=== PATIENT | female | born 1990 | race Caucasian/White ===

== ENCOUNTER 2022-08-07 04:55 | Inpatient (IN) | payer MEDICAID, SELFPAY ==
[2022-08-06 22:43] VITALS: BP 137/94; PULSE 92
[2022-08-06 22:44] VITALS: TEMP 36.2
[2022-08-06 23:14] VITALS: RESP 15
[2022-08-06 23:16] VITALS: BMI 30.1
[2022-08-06 23:28] VITALS: BP 149/90; PULSE 74
[2022-08-07] VITALS (198 sets, daily range): BP systolic 118–181; BP diastolic 68–110; PULSE 61–112; RESP 14–16; TEMP 36.1–36.4; O2SAT 83–100
[2022-08-07] MEDS: lactated ringers 1,000 ML 999 ML IV (00:57)
[2022-08-07 01:29] LABS: Basophils % 0.5 %; Eosinophils % 0.3 %; Hematocrit 37.8 % (37.0-47.0); Hemoglobin 11.9 g/dL (11.5-15.3); Lymphocytes # 1.9 10^3/uL (0.8-4.8); Lymphocytes % 30.6 %; Mean Corpuscular HGB Conc 31.5 g/dL (30.0-36.0); Mean Corpuscular Hemoglobin 28.7 pg (28.0-34.0); Mean Corpuscular Volume 91.1 fl (81-99); Mean Platelet Volume 12.5 fL (7.4-10.4); Monocytes # 0.4 10^3/uL (0.2-0.9); Monocytes % 6.5 %; Neutrophils # 3.81 10^3/uL (1.8-7.7); Neutrophils % 61.6 %; Nucleated Red Blood Cells % 0 %; Platelet Count 164 10^3/cmm (130-400); Red Blood Count 4.15 10^6/uL (4.1-5.3); Red Cell Distribution Width 15.7 % (12.1-15.1); White Blood Count 6.2 10^3/uL (4.0-10.0)
[2022-08-07 01:37] LABS: Urine Appearance Clear (CLEAR); Urine Color Yellow (Yellow)
[2022-08-07 01:38] LABS: Bilirubin Urine Neg (Negative); Blood Urine 2+ (Negative); Glucose Urine UA Norm (Normal); Ketones Urine Negative (Negative); Leukocyte Esterase Urine Negative (Negative); Nitrate Urine Negative (Negative); Protein Urine 3+ (Negative); Urobilinogen Urine Neg (Negative); pH Urine 5 (5-7)
[2022-08-07 01:39] LABS: Amphetamines Screen Urine Positive (Negative); Barbiturates Screen Urine Negative (Negative); Benzodiazepines Screen Urine Negative (Negative); Cocaine Screen Urine Negative (Negative); Opiate Screen Urine Negative (Negative); PCP Screen Urine Negative (Negative); THC Screen Urine Positive (Negative)
[2022-08-07 01:41] LABS: Add Urine Culture? No; RBC Urine 0-4 /hpf (0-2)
--- NOTE | 2022-08-07 01:44 | USR_ITS ---
PROCEDURE INFORMATION: Exam: US Plus Detailed Evaluation, First Gestation, Transabdominal Exam date and time: 08/07/2022 1:53 AM Age: 32 years old Clinical indication: Lmp or gestational age (in weeks): 38 weeks; Labor and delivery abnormalities; Other: Contactions; ; Prior surgery; Surgery date: 6+ months; Surgery type: HX of ; Additional info: No care LABS AND CLINICAL REPORTS: Last menstrual period start date: 11/13/2021 Gestational age (Established): 38 w 1 d Estimated due date (Established): 08/20/2022 TECHNIQUE: Imaging protocol: Real time transabdominal uterus, including and maternal evaluation plus detailed anatomic examination with image documentation. First gestation. COMPARISON: No relevant prior studies available. FINDINGS: Gestation: Single live intrauterine gestation heart rate: 136 bpm presentation: Cephalic Placenta: Posterior placenta without previa. Amniotic fluid: Amniotic fluid is normal for gestational age. Amniotic fluid index: ROBBIE is 14.6 cm. ANATOMY: brain parenchyma: Grossly unremarkable. corpus callosum: N/A midline falx: midline falx is normal. septum pellucidum: N/A cerebellum: cerebellum is normal. lateral ventricles: lateral ventricles are normal. choroid plexus: Obscured by position cisterna magna: Obscured by position orbits: N/A upper lip and nose: upper lip and nose are normal. palate, maxilla, mandible, and tongue: facial profile: facial profile is normal. coronal face including nose, lips and lens: N/A ear position and size: N/A Neck: N/A lungs: N/A situs: situs is normal. heart four-chamber view, heart size and position: heart four-chamber view, size, and position are normal. three-vessel and trachea view: N/A three-vessel view: N/A right ventricular outflow tract: right ventricular outflow tract is normal. left ventricular outflow tract: left ventricular outflow tract is normal. aortic arch: N/A superior and inferior vena cava: N/A ribs: N/A diaphragm: N/A liver: N/A gallbladder: N/A spleen: N/A adrenal glands: N/A kidneys: kidneys are normal. renal arteries: N/A stomach: stomach is normal. urinary bladder: bladder is normal. spine: No visualized abnormalities of spine. Spine shape and curvature: Grossly unremarkable. integrity soft tissue overlying spine: N/A Umbilical cord insertion site into the abdomen: umbilical cord insertion site into the abdomen is normal. Umbilical cord vessel number: 3-vessel umbilical cord arms and hands: No visualized abnormalities of arms/hands. legs and feet: No visualized abnormalities of legs/feet. abdominal wall: N/A external genitalia: No visualized abnormalities. BIOMETRY: Gestational age (AUA): 37 w 0 d Estimated due date (AUA): 08/28/2022 Estimated weight: 3155 g. [place] ([id number]) Biparietal diameter (BPD): 9 cm. EGA (BPD) is 36 w 3 d Head circumference (HC): 33.3 cm. EGA (HC) is 38 w 0 d Abdominal circumference (AC): 33.6 cm. EGA (AC) is 37 w 4 d Femur length (FL): 7.2 cm. EGA (FL) is 36 w 5 d Cephalic Index (CI): 73.3 % FL/HC: 21.5 % FL/BPD: 79.6 % MATERNAL ANATOMY: Uterus: Grossly unremarkable. Cervix: Grossly unremarkable. Right ovary/adnexa: N/A. Left ovary/adnexa: N/A. Intraperitoneal space: N/A. Notes: This detailed survey study is focused on known or suspected anomalies. US/US OB >= 14 weeks fetus [id number] IMPRESSION: Single live intrauterine gestation as described above within AUA of approximately 37 weeks 0 days.
[2022-08-07 01:46] LABS: Alanine Aminotransferase 117 U/L (0-33); Albumin Level 2.8 g/dL (3.5-5.2); Alkaline Phosphatase 414 U/L (35-105); Anion Gap 12.9 (5-19); Aspartate Amino Transferase 80 U/L (0-32); Blood Urea Nitrogen 18 mg/dL (6-20); Calcium 8.4 mg/dL (8.5-10.5); Carbon Dioxide 21 mmol/L (22-29); Chloride 104 mmol/L (98-107); Globulin 3.5 g/dL (1.3-4.6); Glomerular Filtration Rate 83.1 mL/min (90-130); Glucose 80 mg/dL (65-115); Osmolality Calculated 279 mOsm/kg (285-295); Potassium 3.9 mmol/L (3.5-5.1); Sodium 134 mmol/L (136-145); Total Bilirubin 0.2 mg/dL (0.15-1.2); Total Protein 6.3 g/dL (6.6-8.7)
[2022-08-07 03:24] LABS: Rapid Plasma Reagin Syphilis Nonreactive (Nonreactive)
[2022-08-07 03:31] LABS: HIV 1 & 2 Antibody Non-Reactive (Non-Reactiv); HIV 1 & 2 Antigen Non-Reactive (Non-Reactiv)
[2022-08-07 03:44] LABS: Hepatitis B Surface Antigen Non-Reactive (Nonreactive)
[2022-08-07] MEDS: cefTRIAXone 1,000 MG in sodium chloride 0.9% (plus) 50 ML 100 MG IV (03:55)
[2022-08-07] MEDS: magnesium sulfate premix 4 GM/100 ML PREMIX IV (03:57)
[2022-08-07] MEDS: magnesium sulfate premix 20 GM/500 ML BAG IV ×2 (04:19→14:40)
--- NOTE | 2022-08-07 04:20 | PM.OBGYHP ---
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 Pt c/o contractions onset 12/15 early am. She denies SROM or vaginal bleeding. States she has been receiving PNC in [place] but doesn't know Physicians name, states she is scheduled for repeat section 08/23/2022 at [facility], but LD states she has no records there and is not on their schedule. Pt gives extensive hx of Drug Abuse and has been on Subutex 4mg TID this , last dose taken noon on 08/06/2022 as well as the last 2 pregnancies and Methadone her 1st . She admits to using Methamphetamines recently, and denies using other drugs or alcohol. I have discussed her elevated BP and treatment with MgSO4 to prevent seizures(PIH), for she denies hx of elevated BP, but does state that it has been elevated about the last 5 wks or so in the clinic, but they hadn't started any Meds. She states she has had HAs about 2 wks, but no visual changes, chest pain or shortness of breath and the Baby has been moving good. Present Details : 6 Para: 3 Other Details: - [facility] 03/29 Vtx presentation EFW- pending ROBBIE-pending Gender- male FL- 36.5 wk, AC 37.4wk, BPD 36.1wk and HC 38.0 wk... Cx 4.71cm Specific History Indications for Section: Repeat Other information: Early labor, contractions q 6-7 . Cx 1cm/40/-3. Review of Systems Narrative: 32yoC. female A/O x3 NAD ENMT: Reports: other (poor dentitia) Skin/Breast: Reports: rash, pruritus and sores Neuro: Reports: headache(s) Medications/Allergies Home Medications Medication Instructions Recorded Confirmed Last Taken Type 1 tab PO DAILY 08/06/22 08/06/22 08/06/22 08:00 History Subutex 4 mg PO TID 08/06/22 08/06/22 08/06/22 12:00 History Allergies Allergy/AdvReac Type Severity Reaction Status Date / Time aspirin Allergy ADR-Nausea Verified 08/06/22 23:22 PFSH AIRCRAFT MOTOR MECHANIC PFSH: Surgical History (Updated 08/07/22 @ 05:09 by Destiny Jimenez DO) Previous section Family History (Updated 08/07/22 @ 04:47 by Destiny Jimenez DO) Other Family history of systemic lupus erythematosus (SLE) in mother Social History (Updated 08/07/22 @ 04:50 by Destiny Jimenez DO) Smoking and tobacco status: former smoker Quit status (tobacco): has quit using tobacco Alcohol intake: never Substance/Drug Use: current Other details last substance use: within the last 2 wk Methamphetamines Household members: family Housing: House Number of children: 3 Current occupational status: unemployed Sexually active: Yes Current gender identity: Female Financial difficulty paying for basics: Somewhat Hard Other Female Reproductive History: Menstrual History Comment: Don't remember LMP History History History 6 Term 3 Miscarriages/Ectopic 2 Living Children 3 Vitals/I&O/Wt Last Vital Signs Temp 97.2 F L 08/06/22 22:44 Pulse 73 08/07/22 04:03 Resp 15 08/06/22 23:14 BP 145/100 08/07/22 04:03 Weight last 48 hrs Weight 82.1 kg Physical Exam Narrative: 32yo C. female Alert and Oriented, answers questions appropriately. But doesn't remember some of her history, she says because of past drug use. Const: COMMON NORMALS: no acute distress and patient oriented x3 HENMT: COMMON NORMALS: normocephalic, Normal external nose present, Normal nasal mucous membranes and turbinates present, moist oral mucous membranes and dentition normal (poor dentitia) TEETH & GINGIVA: Yes poor dentition Neck/C-Spine: COMMON NORMALS: full ROM, no lymphadenopathy and Thyroid normal Chest: COMMONS NORMALS: normal palpation of entire chest wall Resp: COMMON NORMALS: normal respiratory effort and clear to auscultation bilaterally Cardio: COMMON NORMALS: no JVD, regular rate and regular rhythm : COMMON NORMALS: Yes no CVA tenderness, Yes normal external appearance and Yes normal appearance of the vagina OTHER: nontender Extremity: OTHER: +2 lower ext edema, DTR +2 bilat. Neuro: COMMON NORMALS: patient oriented x3, CN's II-XII intact bilaterally, moves all extremities, no sensory deficits noted and deep tendon reflexes 2+ bilaterally Skin: NARRATIVE SKIN EXAM: skin color mottled, with many new and old lesions Data 08/07/22 00:52 08/07/22 00:52 A&P Assessment and plan (1) 38 weeks gestation of : P. 1. Admit to LD for EFM and Lab 2. Evaluate for Labor 3. Magnesium sulfate 4gm bolus, 2gm Maintenance for PIH 4. Celestone 12mg IM 5.Rocephin 1 gm IVPB 6. Ampicillin 1gm IVPB q 4hr 7. OB US for ANTWAN and BPP 8. Fentyl 25mcg for pain q 2 hrs 9. Schedule for Repeat C/S 30 08/07/22. Have Detective Captain present.... (2) Drug abuse, amphetamine type: P. Continue Subtex 4mg TID (3) Previous section: (4) Hypertension affecting in third trimester: P. MGSO4 Schedule Repeat C/S. Attestations Medical Necessity Statement*: Pt admitted after signs of early labor and pain with elevated BP, (Chronic HTN vs PIH vs drug induced) Will schedule Repeat C/S delivery. Coding Level of Care Code Acute Work From Home for [employer] Diagnoses 38 weeks gestation of Z3A.38 Drug abuse, amphetamine type F15.10 Previous section Z98.891 Hypertension affecting in third trimester O16.3
[2022-08-07] MEDS: fentaNYL 50 mcg/mL INJ 2mL 25 MCG IVP (04:24)
[2022-08-07] MEDS: benzocaine-menthol 78 gm Canister 1 SPRAY TOPICAL (04:26)
[2022-08-07] MEDS: ampicillin 1,000 MG in sodium chloride 0.9% (plus) 50 ML 75 MG IV (05:22)
[2022-08-07] MEDS: dexamethasone 10 mg/mL INJ IM (05:25)
[2022-08-07] MEDS: metoclopramide 5 mg/mL SDV 2 mL 10 MG IVP (07:20)
--- NOTE | 2022-08-07 07:20 | P.ANESASSM_ITS ---
Pre-Anesthetic Assessment Height/Weight: Height 1.65 m Weight 82.1 kg Temp Pulse Resp BP O2 Del Method 97.2 F L 86 15 154/103 08/06/22 22:44 08/07/22 07:21 08/06/22 23:14 08/07/22 07:21 08/07/22 04:45 Preop Diagnosis: IUP Operation Date: 08/07/22 07:50 Proposed Procedures p Section Repeat(Not Applicable) - Destiny Jimenez, Familial anesthetic complications: none Was Beta Nereida taken within 24 hours: N/A Was Clonidine taken within 24 hours: N/A Last intake: yesterday morning Social Tobacco and No alcohol pos. for meth and THC Exam alert and oriented x 3 Airway Submandibular: within normal limits Cervical ROM: within normal limits Mallampati: Class IV Dentition: chipped and other (multiple missing, very poor dentition) Pulmonary None reported CV/HEM Hypertension None reported Hepatic None reported GI Gastroesophageal Reflux Disease Metabolic None reported Musc/skel None reported Neuropsych None reported Anesthetic Plan ASA status: 3 Anesthesia: Anesthesia Evaluation and Regional (specify below) (SAB) Risk of > 500 ml blood loss (7ml/kg in children): No Medications/Allergies Home Medications Medication Instructions Recorded Confirmed Last Taken Type 1 tab PO DAILY 08/06/22 08/06/22 08/06/22 08:00 History Subutex 4 mg PO TID 08/06/22 08/06/22 08/06/22 12:00 History Allergies Allergy/AdvReac Type Severity Reaction Status Date / Time aspirin Allergy ADR-Nausea Verified 08/06/22 23:22 Current Medications Generic Name Dose Route Start Last Admin Trade Name Maycoq PRN Reason Stop Dose Admin Benzocaine 1 spray 08/07/22 03:43 08/07/22 04:26 Benzocaine-Menthol 78 Gm Canister TOPICAL 1 spray PRN PRN Administration PAIN Fentanyl 25 mcg 08/07/22 04:13 08/07/22 04:24 Fentanyl 50 Mcg/Ml Inj 2ml IVP 25 mcg Q2H PRN Administration SEVERE PAIN Magnesium Sulfate 20 gm in 500 mls @ 50 mls/hr 08/07/22 03:30 08/07/22 04:19 Magnesium Sulfate Premix IV 50 mls/hr .Q10H BRAD Administration Ampicillin Sodium 1,000 mg/ 50 mls @ 100 mls/hr 08/07/22 03:30 08/07/22 05:22 Sodium Chloride IV 75 mls/hr Q6H BRAD Administration Protocol [facility] Anesthesia Surgical History (Updated 08/07/22 @ 05:09 by Destiny Jimenez DO) Previous section Family History (Updated 08/07/22 @ 04:47 by Destiny Jimenez DO) Other Family history of systemic lupus erythematosus (SLE) in mother Social History (Updated 08/07/22 @ 04:50 by Destiny Jimenez DO) Smoking and tobacco status: former smoker Quit status (tobacco): has quit using tobacco Alcohol intake: never Substance/Drug Use: current Other details last substance use: within the last 2 wk Methamphetamines Household members: family Housing: House Number of children: 3 Current occupational status: unemployed Sexually active: Yes Current gender identity: Female Financial difficulty paying for basics: Somewhat Hard Female Reproductive History : 6 Data Anesthesia 08/07/22 00:52 08/07/22 00:52 Short CBC 08/07/22 Range/Units 00:52 WBC 6.2 (4.0-10.0) 10^3/uL Hgb 11.9 (11.5-15.3) g/dL Hct 37.8 (37.0-47.0) % MCV 91.1 (81-99) fl Plt Count 164 (130-400) 10^3/cmm Neut % (Auto) 61.6 % Neut # (Auto) 3.81 (1.8-7.7) 10^3/uL BMP 08/07/22 00:52 Sodium 134 L Potassium 3.9 Chloride 104 Carbon Dioxide 21 L BUN 18 Creatinine 0.8 Glucose 80 Calcium 8.4 L Liver Function 08/07/22 Range/Units 00:52 Total Bilirubin 0.2 (0.15-1.2) mg/dL AST 80 H (0-32) U/L ALT 117 H (0-33) U/L Alkaline Phosphatase 414 H (35-105) U/L Albumin 2.8 L (3.5-5.2) g/dL Urine 08/07/22 Range/Units 01:13 Urine Color Yellow (Yellow) Urine Appearance Clear (CLEAR) Urine pH 5 (5-7) Ur Specific [place] 1.020 (1.005-1.030) Urine Protein 3+ H (Negative) Urine Glucose (UA) Norm (Normal) Urine Ketones Negative (Negative) Urine Nitrate Negative (Negative) Urine Bilirubin Neg (Negative) Ur Leukocyte Esterase Negative (Negative) Urine RBC 0-4 H (0-2) /hpf Urine WBC None (0-5) /hpf Blood Bank 08/07/22 00:52 Blood Type A Positive Rho(D) Type Positive Antibody Screen Negative Cardiac Studies: No Data to Display
[2022-08-07] MEDS: famotidine 20 mg/2 mL INJ IVP (07:21)
[2022-08-07] MEDS: citric acid-sodium citrate 30 mL UDC PO (07:22)
--- NOTE | 2022-08-07 08:49 | P.OP_ITS ---
Operative Report Date of procedure: August 07, 2022 Pre-op diagnosis: Preop Diagnosis 38wk IUP No PNC Previous C/S x 3 Gestational Hypertension Chronic Drug Abuse Positive Urine Drug Screen (Methamphetamines and THC) Early labor Hx of Hep C Post-op diagnosis: same + Meconium stained fluid Right Ovarian Cyst 5cm Procedure done: Repeat LTCS Aspiration of 5cm Right Ovarian Cyst (30cc clear fluid) Specimens removed/disposition: Placenta 30cc fluid from Right Ovarian Cyst Pathology: both specimens Surgeon: Carlos Jimenez DO Anesthesia: Other (spinal) Estimated blood loss: 1000ml IV fluids: see Anesthesia records Urine output: 200cc Complications: none Condition: stable Disposition: floor Brief History: 32yo C. female delivered by Repeat LTCS a viable male 7#11 with 9/9. Vertex presentation delivered with Robust cry, bulb suctioned. Anterior followed by posterior shoulder delivered followed by remainder of body. Delayed cord clamping, then cut. 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 pH and cord blood drawn and handed off. 3v cord noted, placenta spontaneously expelled and removed, uterus exteriorized and wiped clean. Pitocin IV solution given via bolus and uterus messaged and firmed well. Uterine incision closed with running stitch of 0 vicryl. A 5cm Right Ovarian cyst noted, using 18 gauge needle and 6cc syringe aspiration of 30cc clear fluid. Good Hemostasis noted. Posterior culdesac and side paez wiped clean with moist Laps, uterus replaced in abdomen. Rectus muscle and peritoneum approximated with 2 vicryl. Fascia closed with 0 vicryl, SQ fat approximated with 2 vicryl, and skin approximated with subcuticular running stitch. Good hemostasis. Uterus messaged and noted to be firm, Uterus and vaginal vault evacuated. Needle, instrument and sponge count correct. Pt and Baby Boy both stable. Procedure: Repeat LTCS with Aspiration of Right Ovarian Cyst
[2022-08-07 11:55] LABS: Magnesium Level (OB Only) 5.3 mg/dL (5.0-7.5)
[2022-08-07 12:05] LABS: Cyto Order Verification Order Verified
[2022-08-07] MEDS: buprenorphine-naloxone 4-1 mg Film 1 EACH SUBLINGUAL ×3 (12:16→20:58)
[2022-08-07] MEDS: ketorolac 30 mg/mL INJ IVP ×2 (14:39→20:58)
[2022-08-07] MEDS: acetaminophen 325 mg Tablet 650 MG PO (16:36)
[2022-08-07] MEDS: docusate sodium 100 mg Capsule PO (18:42)
[2022-08-07] MEDS: dextrose 5%-lactated ringers 1,000 ML 125 ML IV (21:15)
[2022-08-07 23:07] LABS: Hematocrit 33.8 % (37.0-47.0); Mean Corpuscular HGB Conc 32.5 g/dL (30.0-36.0); Mean Corpuscular Volume 89.2 fl (81-99); Mean Platelet Volume 12.9 fL (7.4-10.4); Platelet Count 197 10^3/cmm (130-400); Red Blood Count 3.79 10^6/uL (4.1-5.3); Red Cell Distribution Width 15.8 % (12.1-15.1); White Blood Count 11.6 10^3/uL (4.0-10.0)
[2022-08-08] VITALS (7 sets, daily range): BP systolic 128–174; BP diastolic 92–101; PULSE 75–89; RESP 16; TEMP 36.4; O2SAT 88
[2022-08-08] MEDS: ketorolac 30 mg/mL INJ IVP (03:18)
[2022-08-08] MEDS: docusate sodium 100 mg Capsule PO (08:41)
[2022-08-08] MEDS: buprenorphine-naloxone 4-1 mg Film 1 EACH SUBLINGUAL ×3 (08:41→21:08)
[2022-08-08] MEDS: prenatal vitamin Capsule 1 CAP PO (08:41)
[2022-08-08] MEDS: ibuprofen 800 mg tablet PO ×3 (09:00→21:08)
--- NOTE | 2022-08-08 10:14 | PM.OBGYPN ---
CUSTOMER SERVICE CORRESPONDENCE CLERK Subjective Subjective: Interval history: Pt doing well, denies problems of nervous shakes, HAs, nausea or vomiting. Ambulating without assistance, had shower this am. Voiding and passing flatus. Pain managed with Tylenol and Ibuprofen, no narcotics. Discussed importance of remaining off street drugs and continuing her Subutex. Labor: Station: -4 Amniotic Membrane Status: Intact Monitor Mode: External Contraction Pattern: Irregular Vitals/I&O/Wt Last Vital Signs Temp 97.5 F L 08/07/22 16:41 Pulse 75 08/08/22 05:10 Resp 16 08/07/22 22:45 BP 157/95 08/08/22 05:10 Pulse Ox 88 L 08/07/22 21:12 O2 Del Method 08/07/22 09:15 08/07/22 08/08/22 08/08/22 22:59 06:59 14:59 Intake Total 2775 / 5075 Output Total 1320 / 4420 1800 / 6220 Balance 1455 / 655 -1800 / -1145 Weight last 48 hrs Weight 82.1 kg Physical Exam Narrative: Pt ambulating in room, A/O x 3 NAD. Const: COMMON NORMALS: patient oriented x3 Cardio: COMMON NORMALS: regular rate, regular rhythm and No murmurs present (Cardio) RATE: regular rate RHYTHM: regular rhythm : COMMON NORMALS: Yes no CVA tenderness BLADDER/KIDNEY EXAM: Yes no CVA tenderness Back/Pelvis: COMMON NORMALS: no CVA tenderness OTHER: Abd- soft, fundus firm, Incision Clean, Dry and Intact. Lochia light. Extremity: NARRATIVE EXTREMITY EXAM: Pedal and lower ext- edema has resolved. Neg Homans sign. Neuro: COMMON NORMALS: patient oriented x3, CN's II-XII intact bilaterally, moves all extremities, no focal motor deficits, deep tendon reflexes 2+ bilaterally and gait normal Urinary Catheter Management: Merino: Cath Placed During This Visit: yes, but has since been removed by the nurse Reason for Continuing Indwelling Catheter: Decision to DC Catheter Urinary Catheter Date of Insertion: 08/07/22 Urinary Catheter Time of Insertion: 05:05 Date Urinary Catheter Removed: 08/08/22 Time Urinary Catheter Discontinued: 03:43 Data 08/07/22 22:00 08/07/22 00:52 Micro: Microbiology 08/07/22 05:15 Chlamydia trachomatis (ASHLEY) - Final Urine Random Neisseria gonorrhoeae (ASHLEY) - Final A&P Assessment and plan (1) S/P repeat low transverse : 1. Continue postop orders 2. Watch BP Plan Continue care. Attestations Medical Necessity Statement*: POstop care. Coding Level of Care Code Acute Vice President Quality Assurance for [facility] Fwd Diagnoses S/P repeat low transverse Z98.891
[2022-08-08] MEDS: labetalol 200 mg Tablet 100 MG PO (22:59)
[2022-08-09] VITALS (7 sets, daily range): BP systolic 126–142; BP diastolic 65–82; PULSE 70–86; RESP 15; TEMP 36.7–37.1
[2022-08-09] MEDS: alum-mag-hydroxide-sime 30 mL UDC PO (04:05)
[2022-08-09] MEDS: ibuprofen 800 mg tablet PO (08:07)
[2022-08-09] MEDS: labetalol 200 mg Tablet 100 MG PO (08:07)
[2022-08-09] MEDS: prenatal vitamin Capsule 1 CAP PO (08:07)
[2022-08-09] MEDS: ferrous sulfate EC 325 mg Tablet PO (08:07)
[2022-08-09] MEDS: buprenorphine-naloxone 4-1 mg Film 1 EACH SUBLINGUAL (08:08)
--- NOTE | 2022-08-09 10:27 | PM.OBGYDC ---
Discharge Providers SERVICES ENGINEER Date of Admission: 08/07/22 04:55 Date of Discharge: 08/09/22 Attending Provider at Admission: Destiny Jimenez DO Attending Provider at Discharge: Destiny Jimenez DO Primary Care Provider: Hakeem Vuong MD Diagnoses at Discharge Discharge Diagnosis (1) S/P repeat low transverse : Status: Acute (2) Hypertension affecting in third trimester: Status: Acute (3) Previous section: Status: Acute (4) Drug abuse, amphetamine type: Status: Acute (5) 38 weeks gestation of : Status: Acute (6) Hep C w/o coma, chronic: Status: Acute Reason for Visit Reason for Visit: Contractions, Previous Section Hospital Course Hospital Course 32yo C. female delivered by Repeat LTCS a viable male. Pt has significnt hx of IV drug abuse currently taking Subutex TID. Pt admits to relapse during with Methamphetamines. During early labor observation, elevated BP was treated with MgSO4, and post op BP remained elevated so pt was started on Labetolol 100mg BID which has lowered BP well. Pt denies HAs or visual changes. Ambulates, and is tolerating regular diet, passing flatus. Advised pt against Drug abuse and expectations postoperatively. Tylenol and Ibuprofen has managed pain, advised to continue. [facility] has been consulted and pt states she is going to stay in [place] with FOB who has her other children. VSS, Afebrile Abd- soft, fundus firm. Lochia light Ext- +1 edema lower Ext. Neg Homans sign. Information Peripartum Data: Infant Delivery Method: Physical Exam Urinary Catheter Management: Merino: Cath Placed During This Visit: yes, but has since been removed by the nurse Reason for Continuing Indwelling Catheter: Decision to DC Catheter Urinary Catheter Date of Insertion: 08/07/22 Urinary Catheter Time of Insertion: 05:05 Date Urinary Catheter Removed: 08/08/22 Time Urinary Catheter Discontinued: 03:43 History History History 6 Term 3 Miscarriages/Ectopic 2 Living Children 3 Discharge Data Studies Completed and Pending Completed Studies During Hospitalization Category Date Time Status US OB >= 14 weeks fetus [id number] Stat Ultrasound 08/07/22 01:44 Completed Pending at discharge Category Date Time Status Cytology [PTH] Routine Pth 08/07/22 11:41 Received Pathology: Surgical [PTH] Routine Pth 08/07/22 11:00 Ordered Radiology Impressions Ultrasound 08/07/22 01:44 IMPRESSION: Single live intrauterine gestation as described above within AUA of approximately 37 weeks 0 days. Laboratory Results WBC 11.6 10^3/uL (4.0-10.0) H 08/07/22 22:00 RBC 3.79 10^6/uL (4.1-5.3) L 08/07/22 22:00 Hgb 11.0 g/dL (11.5-15.3) L 08/07/22 22:00 Hct 33.8 % (37.0-47.0) L 08/07/22 22:00 MCV 89.2 fl (81-99) 08/07/22 22:00 MCH 29.0 pg (28.0-34.0) 08/07/22 22:00 MCHC 32.5 g/dL (30.0-36.0) 08/07/22 22:00 RDW 15.8 % (12.1-15.1) H 08/07/22 22:00 Plt Count 197 10^3/cmm (130-400) 08/07/22 22:00 MPV 12.9 fL (7.4-10.4) H 08/07/22 22:00 Neut % (Auto) 61.6 % 08/07/22 00:52 Lymph % (Auto) 30.6 % 08/07/22 00:52 [place] % (Auto) 6.5 % 08/07/22 00:52 Eos % (Auto) 0.3 % 08/07/22 00:52 Baso % (Auto) 0.5 % 08/07/22 00:52 Neut # (Auto) 3.81 10^3/uL (1.8-7.7) 08/07/22 00:52 Lymph # (Auto) 1.9 10^3/uL (0.8-4.8) 08/07/22 00:52 [place] # (Auto) 0.4 10^3/uL (0.2-0.9) 08/07/22 00:52 Eos # (Auto) 0.0 10^3/uL (0.0-0.8) 08/07/22 00:52 Baso # (Auto) 0.0 10^3/uL (0.0-0.1) 08/07/22 00:52 Nucleated RBC % (auto) 0 % 08/07/22 00:52 Nucleated RBCs # 0.0 /100WBC 08/07/22 00:52 Sodium 134 mmol/L (136-145) L 08/07/22 00:52 Potassium 3.9 mmol/L (3.5-5.1) 08/07/22 00:52 Chloride 104 mmol/L (98-107) 08/07/22 00:52 Carbon Dioxide 21 mmol/L (22-29) L 08/07/22 00:52 Anion Gap 12.9 (5-19) 08/07/22 00:52 BUN 18 mg/dL (6-20) 08/07/22 00:52 Creatinine 0.8 mg/dL (0.5-0.9) 08/07/22 00:52 GFR Calculation 83.1 mL/min (90-130) L 08/07/22 00:52 Glucose 80 mg/dL (65-115) 08/07/22 00:52 Calculated Osmolality 279 mOsm/kg (285-295) L 08/07/22 00:52 Calcium 8.4 mg/dL (8.5-10.5) L 08/07/22 00:52 Magnesium 5.3 mg/dL (5.0-7.5) 08/07/22 10:32 Total Bilirubin 0.2 mg/dL (0.15-1.2) 08/07/22 00:52 AST 80 U/L (0-32) H 08/07/22 00:52 ALT 117 U/L (0-33) H 08/07/22 00:52 Alkaline Phosphatase 414 U/L (35-105) H 08/07/22 00:52 Total Protein 6.3 g/dL (6.6-8.7) L 08/07/22 00:52 Albumin 2.8 g/dL (3.5-5.2) L 08/07/22 00:52 Globulin 3.5 g/dL (1.3-4.6) 08/07/22 00:52 Urine Color Yellow (Yellow) 08/07/22 01:13 Urine Appearance Clear (CLEAR) 08/07/22 01:13 Urine pH 5 (5-7) 08/07/22 01:13 Ur Specific [place] 1.020 (1.005-1.030) 08/07/22 01:13 Urine Protein 3+ (Negative) H 08/07/22 01:13 Urine Glucose (UA) Norm (Normal) 08/07/22 01:13 Urine Ketones Negative (Negative) 08/07/22 01:13 Urine Blood 2+ (Negative) H 08/07/22 01:13 Urine Nitrate Negative (Negative) 08/07/22 01:13 Urine Bilirubin Neg (Negative) 08/07/22 01:13 Urine Urobilinogen Neg mg/dL (Negative) 08/07/22 01:13 Ur Leukocyte Esterase Negative (Negative) 08/07/22 01:13 Urine RBC 0-4 /hpf (0-2) H 08/07/22 01:13 Urine WBC None /hpf (0-5) 08/07/22 01:13 Ur Squamous Epith Cells None /hpf (0-5) 08/07/22 01:13 Amorphous Sediment Not Reportable 08/07/22 01:13 Urine Bacteria None /hpf (NONE) 08/07/22 01:13 Urine Opiates Screen Negative ng/mL (Negative) 08/07/22 01:13 Ur Barbiturates Screen Negative ng/mL (Negative) 08/07/22 01:13 Ur Phencyclidine Scrn Negative ng/mL (Negative) 08/07/22 01:13 Ur Amphetamines Screen Positive ng/mL (Negative) H 08/07/22 01:13 U Benzodiazepines Scrn Negative ng/mL (Negative) 08/07/22 01:13 Urine Cocaine Screen Negative ng/mL (Negative) 08/07/22 01:13 U Marijuana (THC) Screen Positive ng/mL (Negative) H 08/07/22 01:13 RPR Nonreactive (Nonreactive) 08/07/22 02:14 Hep Bs Antigen Non-reactive (Nonreactive) 08/07/22 02:14 HIV 1&2 Ab & HIV 1 Ag Non-reactive (Non-Reactiv) 08/07/22 02:14 HIV 1&2 Antibody Non-reactive (Non-Reactiv) 08/07/22 02:14 Rubella IgG Antibody 43.0 IU/mL (0.0-10.0) H 08/07/22 02:14 Blood Type A Positive 08/07/22 00:52 Rho(D) Type Positive 08/07/22 00:52 Antibody Screen Negative 08/07/22 00:52 Vitals Last Vital Signs Temp 97.5 F L 08/08/22 10:00 Pulse 70 08/09/22 09:58 Resp 16 08/08/22 10:00 BP 130/65 08/09/22 09:58 Pulse Ox 88 L 08/08/22 10:00 O2 Del Method 08/07/22 09:15 Discharge Plan Discharge Patient Disposition: Home Condition: Stable Prescriptions: Continued tablet 1 tab PO DAILY Subutex tablet 4 mg PO TID Discharge Orders: Discharge Order (Routine); Ordered 08/09/22 Ordered By: Destiny Jimenez Patient Instructions: Opioid Safety Discharge Attestations SERVICES ENGINEER Time Spent in Discharge Care*: less than 30 min Coding Level of Care 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
== END 2022-08-09 12:30 | disposition home or self-care (01) | DRG 787 ==
LOC: OPOB 04:56 → OBGYN 04:56
PROVIDERS: Admitting Provider Obstetrics & Gynecology; Family Provider Nurse Practitioner Family; PCP Obstetrics & Gynecology; Visit Provider Obstetrics & Gynecology
PROC: 10D00Z1 Extraction of Products of Conception, Low, Open Approach (ICD-10-PCS; CPT 59514; principal; 2022-08-07 07:30)
DX: O34.211 Maternal care for low transverse scar from previous cesarean delivery (principal); O98.42 Viral hepatitis complicating childbirth; O99.324 Drug use complicating childbirth; F15.10 Other stimulant abuse, uncomplicated; B18.2 Chronic viral hepatitis C; O13.4 Gestational [pregnancy-induced] hypertension without significant proteinuria, complicating childbirth; O77.0 Labor and delivery complicated by meconium in amniotic fluid; O34.83 Maternal care for other abnormalities of pelvic organs, third trimester; N83.201 Unspecified ovarian cyst, right side; Z37.0 Single live birth; Z3A.38 38 weeks gestation of pregnancy; Z79.899 Other long term (current) drug therapy; Z87.891 Personal history of nicotine dependence
CPT/HCPCS: 12345; 36415; 51702; 59025; 76805; 80053; 80306; 81001; 83735; 85025; 85027; 86592; 86762; 86850; 86900; 87340; 87491; 87591; 87806; 88304; 88305; 88307; 96372; 99211; J0290; J0573; J0696; J1100; J1885; J2274; J2590; J2765; J3010; J3475; J3490; J7120; J7121

== ENCOUNTER 2023-02-22 11:17 | Emergency (ER) | payer MEDICAID, SELFPAY ==
[2023-02-22 11:17] VITALS: BP 119/72; PULSE 84; RESP 18; TEMP 37; O2SAT 100; BMI 22.9
--- NOTE | 2023-02-22 11:31 | W.ED.NAVMDI ---
HPI - Nausea/Vomiting/Diarrhea General: Chief complaint: Nausea/Vomiting/Diarrhea Stated complaint: withdrawal symptoms Source: patient, EMS and police Mode of arrival: EMS Limitations: no limitations History of Present Illness: 32-year-old female who states that she has been having nausea and vomiting at the [facility]. She states she has been in [facility] throughout the weekend states she supposed to be on Suboxone and does not have it she can return she may be having withdrawal she is well-appearing here she has no tremor vitals are all normal but states she has been vomiting throughout the day denies any pain. Associated nausea: Yes Associated symtoms: Reports nausea; Denies chest pain, dysuria or headache(s) Review of Systems Const: Denies: fever(s) or chills Eyes: Denies: eye discomfort ENMT: Denies: throat pain or dental pain Card: Denies: chest pain Resp: Denies: dyspnea GI: Reports: nausea and vomiting; Denies: abdominal pain or diarrhea : Denies: dysuria Musc: Denies: neck pain or back pain Skin/Breast: Denies: rash Neuro: Denies: headache(s) Psych: Denies: depression PFSH ED PFSH: Surgical History Previous section Family History (Updated 08/30/22 @ 08:38 by Frannie Dacosta LPN) Other Family history of systemic lupus erythematosus (SLE) in mother Denies family history of Colon cancer Pancreatic cancer Ovarian cancer Thyroid cancer Diabetes Breast cancer screening Cancer Hypertension Uterine cancer Stroke Social History Smoking and tobacco status: former smoker Quit status (tobacco): has quit using tobacco Alcohol intake: never Substance/Drug Use: current Other details last substance use: within the last 2 wk Methamphetamines Household members: family Housing: House Number of children: 3 Current occupational status: unemployed Sexually active: Yes Current gender identity: Female Financial difficulty paying for basics: Somewhat Hard Physical Exam Const: COMMON NORMALS: no acute distress, patient oriented x3 and healthy appearing HENMT: COMMON NORMALS: normocephalic and atraumatic HEAD & SCALP: normocephalic and atraumatic Eye: COMMON NORMALS: conjunctivae normal CONJUNCTIVA: Yes conjunctivae normal Neck/C-Spine: COMMON NORMALS: supple Chest: COMMONS NORMALS: normal inspection of the chest Resp: COMMON NORMALS: normal respiratory effort Cardio: COMMON NORMALS: regular rate, regular rhythm and No murmurs present (Cardio) RATE: regular rate RHYTHM: regular rhythm GI: INSPECTION: Yes normal to inspection Extremity: COMMON NORMALS: normal to inspection and full ROM Neuro: COMMON NORMALS: patient oriented x3, moves all extremities and no focal motor deficits Psych: COMMON NORMALS: mental status grossly normal, Normal thought process present and cooperative THOUGHT PROCESS: Normal thought process present Skin: COMMON NORMALS: no rashes or lesions noted and no wounds GENERAL SKIN EXAM: no rashes or lesions noted Course Vital Signs: Vital signs: Vital Signs Temperature 98.6 F 02/22/23 11:17 Pulse Rate 84 02/22/23 11:17 Respiratory Rate 18 02/22/23 11:17 Blood Pressure 119/72 02/22/23 11:17 Pulse Oximetry 100 02/22/23 11:17 Oxygen Delivery Me thod Room Air 02/22/23 11:17 MDM - Nausea/Vomiting/Diarrhea Medical Decision Making Patient presents with vomiting she has no signs of Suboxone withdrawals here. She has been well-appearing here blood work is normal we will prescribe her Zofran for the [facility]. Medical Records I reviewed the patient's medical records. Lab Data I reviewed the patient's lab results. 02/22/23 11:55 02/22/23 11:55 Laboratory Results WBC 5.5 10^3/uL (4.0-10.0) 02/22/23 11:55 RBC 4.17 10^6/uL (4.1-5.3) 02/22/23 11:55 Hgb 12.2 g/dL (11.5-15.3) 02/22/23 11:55 Hct 37.3 % (37.0-47.0) 02/22/23 11:55 MCV 89.4 fl (81-99) 02/22/23 11:55 MCH 29.3 pg (28.0-34.0) 02/22/23 11:55 MCHC 32.7 g/dL (30.0-36.0) 02/22/23 11:55 RDW 12.6 % (12.1-15.1) 02/22/23 11:55 Plt Count 281 10^3/cmm (130-400) 02/22/23 11:55 MPV 8.9 fL (7.4-10.4) 02/22/23 11:55 Neut % (Auto) 66.8 % 02/22/23 11:55 Lymph % (Auto) 28.8 % 02/22/23 11:55 Pepin % (Auto) 3.3 % 02/22/23 11:55 Eos % (Auto) 0.5 % 02/22/23 11:55 Baso % (Auto) 0.4 % 02/22/23 11:55 Neut # (Auto) 3.70 10^3/uL (1.8-7.7) 02/22/23 11:55 Lymph # (Auto) 1.6 10^3/uL (0.8-4.8) 02/22/23 11:55 Pepin # (Auto) 0.2 10^3/uL (0.2-0.9) 02/22/23 11:55 Eos # (Auto) 0.0 10^3/uL (0.0-0.8) 02/22/23 11:55 Baso # (Auto) 0.0 10^3/uL (0.0-0.1) 02/22/23 11:55 Nucleated RBC % (auto) 0 % 02/22/23 11:55 Nucleated RBCs # 0.0 /100WBC 02/22/23 11:55 Sodium 138 mmol/L (136-145) 02/22/23 11:55 Potassium 3.8 mmol/L (3.5-5.1) 02/22/23 11:55 Chloride 102 mmol/L (98-107) 02/22/23 11:55 Carbon Dioxide 24 mmol/L (22-29) 02/22/23 11:55 Anion Gap 15.8 (5-19) 02/22/23 11:55 BUN 14 mg/dL (6-20) 02/22/23 11:55 Creatinine 0.6 mg/dL (0.5-0.9) 02/22/23 11:55 GFR Calculation 115.9 mL/min (90-130) 02/22/23 11:55 Glucose 104 mg/dL (65-115) 02/22/23 11:55 Calculated Osmolality 287 mOsm/kg (285-295) 02/22/23 11:55 Calcium 8.9 mg/dL (8.5-10.5) 02/22/23 11:55 Total Bilirubin 0.2 mg/dL (0.15-1.2) 02/22/23 11:55 AST 18 U/L (0-32) 02/22/23 11:55 ALT 29 U/L (0-33) 02/22/23 11:55 Alkaline Phosphatase 79 U/L (35-105) 02/22/23 11:55 Total Protein 7.1 g/dL (6.6-8.7) 02/22/23 11:55 Albumin 4.0 g/dL (3.5-5.2) 02/22/23 11:55 Globulin 3.1 g/dL (1.3-4.6) 02/22/23 11:55 Lipase 16 U/L (13-60) 02/22/23 11:55 HCG, Qual Negative (Negative) 02/22/23 11:55 Discharge Plan Discharge Patient Disposition: Home Clinical Impression: Vomiting Condition: Stable Prescriptions: New ondansetron 4 mg tablet,disintegrating 4 mg PO Q6H PRN (Reason: nausea and vomiting) Qty: 14 0RF No Action tablet 1 tab PO DAILY Subutex tablet 4 mg PO TID Discharge Orders: Discharge ED (Routine); Ordered 02/22/23 Ordered By: Geovanna Leal Referrals: Hakeem Vuong MD [Primary Care Provider] - Discharge Diet: Advance as tolerated Discharge Activity: Resume usual activity Patient Instructions: Acute Nausea and Vomiting (ED) Coding Level of Care Code ED Neuropsychology Medical Consultant for [facility]
[2023-02-22] MEDS: diphenhydrAMINE 50 mg/mL SDV 1mL IVP (11:58)
[2023-02-22] MEDS: metoclopramide 5 mg/mL SDV 2 mL 10 MG IVP (11:58)
[2023-02-22] MEDS: sodium chloride 0.9% 1,000 ML 999 ML IV (12:01)
[2023-02-22 12:10] LABS: Basophils % 0.4 %; Eosinophils % 0.5 %; Hematocrit 37.3 % (37.0-47.0); Hemoglobin 12.2 g/dL (11.5-15.3); Lymphocytes # 1.6 10^3/uL (0.8-4.8); Lymphocytes % 28.8 %; Mean Corpuscular HGB Conc 32.7 g/dL (30.0-36.0); Mean Corpuscular Hemoglobin 29.3 pg (28.0-34.0); Mean Corpuscular Volume 89.4 fl (81-99); Mean Platelet Volume 8.9 fL (7.4-10.4); Monocytes # 0.2 10^3/uL (0.2-0.9); Monocytes % 3.3 %; Neutrophils % 66.8 %; Nucleated Red Blood Cells % 0 %; Platelet Count 281 10^3/cmm (130-400); Red Blood Count 4.17 10^6/uL (4.1-5.3); Red Cell Distribution Width 12.6 % (12.1-15.1); White Blood Count 5.5 10^3/uL (4.0-10.0)
[2023-02-22 12:17] LABS: HCG, Serum Qual Negative (Negative)
[2023-02-22 12:32] LABS: Alanine Aminotransferase 29 U/L (0-33); Alkaline Phosphatase 79 U/L (35-105); Anion Gap 15.8 (5-19); Aspartate Amino Transferase 18 U/L (0-32); Blood Urea Nitrogen 14 mg/dL (6-20); Calcium 8.9 mg/dL (8.5-10.5); Carbon Dioxide 24 mmol/L (22-29); Chloride 102 mmol/L (98-107); Creatinine Clr Calc Pharmacy 125.8816; Globulin 3.1 g/dL (1.3-4.6); Glomerular Filtration Rate 115.9 mL/min (90-130); Glucose 104 mg/dL (65-115); Lipase 16 U/L (13-60); Osmolality Calculated 287 mOsm/kg (285-295); Potassium 3.8 mmol/L (3.5-5.1); Sodium 138 mmol/L (136-145); Total Bilirubin 0.2 mg/dL (0.15-1.2); Total Protein 7.1 g/dL (6.6-8.7)
== END 2023-02-22 12:56 | disposition home or self-care (01) ==
PROVIDERS: Emergency Provider Emergency Medicine; PCP Obstetrics & Gynecology
DX: R11.11 Vomiting without nausea (principal); Z87.891 Personal history of nicotine dependence
CPT/HCPCS: 80053; 83690; 84703; 85025; 96374; 96375; 99284; J1200; J2765; J7030